=== PATIENT | female | born 2000 | race Caucasian/White ===

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

== ENCOUNTER → 2023-02-22 | Outpatient (CLI) | payer OTHER ==
[2023-02-25 09:39] LABS: CHLAMYDIA TRACHOMATIS, NAA Positive (Negative)
== END ==
LOC: LAB 12:00 → LAB SHORT 12:00
PROVIDERS: Family Medicine
DX: A56.2 Chlamydial infection of genitourinary tract, unspecified (principal)
CPT/HCPCS: 87491; 87591

== ENCOUNTER → 2023-04-07 | Outpatient (CLI) | payer OTHER ==
[2023-04-10 19:38] LABS: APTIMA MEDIA TYPE Urine; C. TRACHOMATIS BY TMA Negative (Negative); N. GONORRHOEAE BY TMA Negative (Negative); SPECIMEN SOURCE Urine
== END ==
LOC: LAB SHORT 12:46 → LAB 12:46
PROVIDERS: Family Medicine
DX: Z11.3 Encounter for screening for infections with a predominantly sexual mode of transmission (principal)
CPT/HCPCS: 87491; 87591

== ENCOUNTER 2024-02-22 13:19 | Emergency (ER) | payer OTHER ==
[~2024-02-22] VITALS: Ht 170.2 cm; Wt 70.3 kg
[~2024-02-22 13:19] MED LIST changes: +ALBU90OI INH; +CODEINE-GUAIFE120 M1 PO
[2024-02-22 13:29] VITALS: BP 126/79
[2024-02-22] MEDS ORDERED: ERYT1OIN BOTHEYES (13:33)
== END 2024-02-22 14:00 | disposition home or self-care (01) ==
LOC: ER 13:19
DX: J06.9 Acute upper respiratory infection, unspecified (principal); H10.89 Other conjunctivitis
CPT/HCPCS: 87081; 87430; 99283

== ENCOUNTER → 2024-03-12 | Outpatient (CLI) | payer OTHER ==
[~2024-03-12] MED LIST changes: +ERYT1OIN BOTHEYES
== END | disposition home or self-care (01) ==
LOC: LAB SHORT 18:00 → LAB 18:00
PROVIDERS: Family Medicine
DX: Z12.4 Encounter for screening for malignant neoplasm of cervix (principal)
CPT/HCPCS: G0123

== ENCOUNTER 2024-04-23 10:38 | Emergency (ER) | payer OTHER ==
[~2024-04-23] VITALS: Ht 172.7 cm; Wt 72.6 kg
[2024-04-23 11:06] VITALS: BP 120/82
== END 2024-04-23 12:45 | disposition home or self-care (01) ==
LOC: ER 10:38
DX: T24.111A Burn of first degree of right thigh, initial encounter (principal); X10.1XXA Contact with hot food, initial encounter
CPT/HCPCS: 99282